=== PATIENT | male | born 1990 | race Caucasian/White ===

== ENCOUNTER 2023-02-23 18:10 | Emergency (ER) | payer OTHER, SELFPAY ==
[2023-02-23 18:31] VITALS: BP 112/69; PULSE 77; RESP 18; TEMP 36.6; O2SAT 98; BMI 26.6
--- NOTE | 2023-02-23 18:31 | ED.GENADULT ---
HPI - General Adult General Chief complaint: General Medical Stated complaint: missed dose at clinic Time Seen by Provider: 02/23/23 18:31 Source: patient Mode of arrival: ambulatory Limitations: no limitations History of Present Illness HPI narrative: 32 yo male with history of opioid use disorder on methadone at [facility] in [place] who presents to the ER for N/V and a missed methadone dose today. Patient states he woke up feeling unwell today, had several episodes of vomiting. He did not go to work. He did not get to go to the methadone clinic. He states he is on 145 mg, got last dose yesterday. He denies any illicit drug use. His stomach is starting to feel better so came to the hospital for a work note and hoping to get his methadone dose today. MD complaint: Nausea, vomiting, missed methadone Onset (ago): hour(s) Relieving factors: none Exacerbating factors: none Associated symptoms: denies other symptoms Treatments prior to arrival: none Related Data Allergies Allergy/AdvReac Type Severity Reaction Status Date / Time No Known Allergies Allergy Verified 02/23/23 18:30 Physical Exam ED Vital Signs: Vital Signs - 24 hr 02/23/23 18:31 Temperature 98 F Pulse Rate 77 Respiratory Rate 18 Blood Pressure 112/69 Pulse Oximetry 98 Oxygen Delivery Method Room Air BMI result Body Mass Index 26.6 Appearance: Alert. Oriented X3. No acute distress. HEENT: normal inspection CVS: Normal heart rate and rhythm. Pulses normal. Respiratory: No respiratory distress. Skin: Skin warm and dry. Normal skin color. Normal skin turgor. No rashes. Extremities: Normal inspection x4 Neuro: Oriented X 3. grossly normal Medications Administered Discontinued Medications Generic Name Dose Route Start Last Admin Trade Name Freq PRN Reason Stop Dose Admin Methadone HCl 40 mg 02/23/23 19:26 02/23/23 19:35 Methadone Hcl 20 Mg/2 Ml Oral.Conc PO 02/23/23 19:27 40 mg ONCE ONE Administration Medical Decision Making Medical Decision Making [facility] Narrative: 32-year-old male with history of opiate use disorder on methadone presents to the ER for evaluation after a missed methadone dose earlier today due to nausea and vomiting. He is feeling better overall but is hoping to get a methadone dose today. Unable to verify his dose to the clinic today. He has no evidence of opiate withdrawal at this time. Will give a small dose of methadone have him follow-up with his clinic in the morning. Patient agrees with plan. Differential Diagnosis Differential Diagnoses: The differential diagnosis associated with the presentation includes methadone dosing after missed dose, less likely med seeking gastroenteritis, food poisoning, viral syndrome Consult Healthcare Provider Management of the patient was discussed with: Behavioral Health Provider Pamela Jackson recommending following up with his clinic tomorrow - small dose methadone here, 40 mg given Called and left a message at [facility] in [place] to try to verify his 145 mg dose - a message is left with their after hours dose verification team however no call was returned after an hour. Patient was given 40 mg of methadone and stable for discharge home patient grateful and understanding. Chronic Conditions Patient?s care impacted by: Other (opioid use disorder) Social Determinants Patient?s care significantly limited by Social Determinants of Health including: Alcoholism and drug addiction in family Critical Care Time Critical Care Time Critical Care Time: No Discharge Plan Discharge Clinical Impression: Gastroenteritis Patient Disposition: Home, Self-Care Instructions: Gastroenteritis (DC) Additional Instructions: You were given 40 mg methadone today. Follow up with your clinic tomorrow. Stick to a bland diet while you are not feeling well. Stand Alone Forms: Work/School Release
[2023-02-23] MEDS: methADONE HCl 20 MG/2 ML ORAL.CONC 40 MG PO (19:35)
== END 2023-02-23 19:53 | disposition home or self-care (01) ==
PROVIDERS: Emergency Provider Emergency Medicine
DX: K52.9 Noninfective gastroenteritis and colitis, unspecified (principal)
CPT/HCPCS: 99282; 99283

== ENCOUNTER 2023-11-14 12:13 | Emergency (ER) | payer MEDICAID, SELFPAY ==
[2023-11-14 12:25] VITALS: BP 114/66; PULSE 44; O2SAT 98
[2023-11-14 12:27] VITALS: BP 141/74; PULSE 84; RESP 16; TEMP 36.8; O2SAT 100; BMI 23.5
[2023-11-14] MEDS: ondansetron HCL 4 MG/2 ML VIAL IVPUSH (12:43)
[2023-11-14] MEDS: 0.9 % Sodium Chloride 1,000 ML 999 ML IV (12:43)
--- NOTE | 2023-11-14 14:02 | ED.GENADULT ---
HPI - General Adult General Chief complaint: Nausea/Vomiting/Diarrhea Stated complaint: ABD PAIN,WEAK,NAUSEA,VOMITING THIS AM PER EMS Time Seen by Provider: 11/14/23 13:48 History of Present Illness HPI narrative: 33 y/o M patient; PMH opiate use disorder on methadone, daily marijuana use, active nicotine use; presents from home via triage with report of sudden onset nausea and NBNB vomiting. Denies associated: fever or chills, diarrhea, abdominal pain, difficulty breathing, or chest pain. Denies prior abdominal surgeries. Reviewed past emergency department visits - patient previously seen 02/23/2023 for nausea/vomiting, and missed methadone dose. Related Data Allergies Allergy/AdvReac Type Severity Reaction Status Date / Time No Known Allergies Allergy Verified 02/23/23 18:30 Review of Systems Review of Systems: Yes all other systems are reviewed and are negative [facility] Past Medical History Attestation statement: The following information was validated with the patient. Source: old records reviewed Social History Social History Smoked in Last 30 Days: No Use of substances other than those prescribed or required for medical reasons: No Advance Directives: No Advance Directives Information Provided: No Physical Exam ED Vital Signs: Vital Signs - 24 hr 11/14/23 12:27 11/14/23 14:29 Temperature 98.3 F 96.7 F L Pulse Rate 84 44 L Respiratory Rate 16 16 Blood Pressure 141/74 H 141/80 H Pulse Oximetry 100 100 Oxygen Delivery Method Room Air Room Air BMI result Body Mass Index 23.5 Patient is afebrile and hemodynamically stable. Const General: cooperative HENTX Head: Yes atraumatic Eyes General: appearance normal, both eyes and all related structures Neck Neck: Yes full ROM, Yes supple and No tender Chest Chest palpation & inspection: normal inspection of the chest and normal palpation of entire chest wall Resp Effort & Inspection: normal respiratory effort, able to speak in complete sentences and no cough Auscultation: clear to auscultation bilaterally Cardio Rate: regular rate Rhythm: regular rhythm Peripheral pulses: Peripheral pulses 2+ throughout GI Inspection: Yes normal to inspection and No distended Palpation (GI): Soft to palpation, not firm, nontender and no guarding General: Yes no CVA tenderness Back/Spine/Pelvis Back: no CVA tenderness Course Course Course Narrative: Patient is afebrile and hemodynamically stable. Reviewed triage orders including Zofran 4mg IV and 1L IVF. Added Haldol 5mg IM for continued nausea/vomiting not improved by Zofran. Requested EKG to confirm appropriate QTc as patient is on chronic methadone. Reevaluation(s) Reevaluation #1: EKG: SB 48BPM without ischemic changes, QTc 432. Laboratory studies reviewed. Mild leukocytosis 13.1. Mild thrombocytopenia 155. COVID/Flu/RSV negative. Time: 15:47 Reevaluation #2: No further nausea/vomiting following Haldol administration. Now reporting restless legs. Unable to confirm patient's methadone dose, will provide 40mg Methadone until he can follow up with the clinic. Patient is agreeable with plan. Discharge to home with out-patient follow up Return precautions given Time: 16:51 Medications Administered Discontinued Medications Generic Name Dose Route Start Last Admin Trade Name Freq PRN Reason Stop Dose Admin Haloperidol Lactate 5 mg 11/14/23 14:06 11/14/23 16:08 Haloperidol Lactate 5 Mg/Ml Vial IM 11/14/23 14:07 5 mg ONCE ONE Administration Sodium Chloride 1,000 mls @ 999 mls/hr 11/14/23 12:45 11/14/23 12:43 Ns IV 11/14/23 13:45 999 mls/hr .Q1H1M ADAM Administration Ondansetron HCl 4 mg 11/14/23 12:39 11/14/23 12:43 Ondansetron Hcl 4 Mg/2 Ml Vial IVPUSH 11/14/23 12:40 4 mg ONCE ONE Administration Medical Decision Making Lab Data 11/14/23 14:13 11/14/23 14:13 Labs: Lab Results 11/14/23 11/14/23 Range/Units 13:29 14:13 WBC 13.1 H (4.8-10.8) X10*3/uL RBC 4.50 L (4.60-5.80) X10*6/uL Hgb 14.1 (14.0-18.0) g/dl Hct 41.1 L (42.0-52.0) % MCV 91.3 (80.0-98.0) fL MCH 31.3 (27.0-33.0) pg MCHC 34.3 (31.0-36.0) g/dl RDW 11.9 (11.0-16.0) % Plt Count 155 L (160-400) X10*3/uL MPV 11.0 (9.4-12.4) fL Immature Gran % (Auto) 0.5 H (0.0-0.4) % Neut % (Auto) 86.8 H (45-73) % Lymph % (Auto) 6.8 L (20-40) % [place] % (Auto) 5.7 (2-11) % Eos % (Auto) 0.0 (0-4) % Baso % (Auto) 0.2 (0-2) % Lymph # (Auto) 0.9 L (1.2-4.9) X10*3/uL [place] # (Auto) 0.8 (0.1-1.2) X10*3/uL Eos # (Auto) 0.0 (0.0-0.4) X10*3/uL Baso # (Auto) 0.0 (0.0-0.2) X10*3/uL Abs Immat Gran (auto) 0.06 H (0.00-0.03) X10*3/uL Absolute Neuts (auto) 11.4 H (2.0-8.3) x10*3/uL Absolute Nucleated RBC 0.000 (0.0-0.012) X10*3/uL Nucleated RBC % (auto) 0.0 (0.0-0.2) /100WBC Sodium 140 (135-145) mmol/L Potassium 4.3 (3.3-5.1) mmol/L Chloride 105 (96-108) mmol/L Carbon Dioxide 24 (22-29) mmol/L Anion Gap 15 (12-20) BUN 11 (9-16) mg/dL Creatinine 0.89 (0.5-1.4) mg/dL Estim Creat Clear Calc 112.4 Estimated GFR > 60 Random Glucose 140 H (60-115) mg/dL Calcium 10.0 (8.4-10.2) mg/dL Total Bilirubin 0.4 (0.0-1.0) mg/dL Direct Bilirubin 0.2 (0.0-0.5) mg/dL AST 28 (5-37) U/L ALT 43 H (0-40) U/L Alkaline Phosphatase 57 (39-117) U/L Total Protein 7.8 (6.5-8.0) g/dL Albumin 4.6 (3.5-5.0) g/dL Lipase 12 (8-78) U/L Influenza Type A (PCR) NEGATIVE (Negative) Influenza Type B (PCR) NEGATIVE (Negative) RSV RNA Qual (PCR) NEGATIVE (Negative) SARS-CoV-2 RNA (RT-PCR) NEGATIVE (Negative) Discharge Plan Discharge Clinical Impression: Nausea & vomiting Patient Disposition: Home, Self-Care Instructions: Acute Nausea and Vomiting (ED) Additional Instructions: As we discussed, you were seen today for nausea and vomiting. Your lab work was reassuring with negative COVID/Flu/RSV. You received Zofran and Haldol for nausea, IV fluid for hydration, and a 40mg dose of Methadone until you can follow up in the clinic tomorrow (11/15/2023). Return to the emergency department for abdominal pain, fever or chills, continued vomiting.
--- NOTE | 2023-11-14 14:07 | ECG_ITS ---
Test Reason : NAUSEA/VOMITING Blood Pressure : / mmHG Vent. Rate : 048 BPM Atrial Rate : 048 BPM P-R Int : 106 ms QRS Dur : 100 ms QT Int : 484 ms P-R-T Axes : 042 -26 031 degrees QTc Int : 432 ms Sinus bradycardia with short PA with Sinus Arrhythmia Incomplete right bundle branch block Borderline ECG No previous ECGs available Referred By: Debby Mack Electronically Signed By:MESSI DORAN MD
[2023-11-14 14:16] LABS: MANUAL DIFF FLAG NO
[2023-11-14 14:17] LABS: Influenza A PCR NEGATIVE (Negative); Influenza B PCR NEGATIVE (Negative); Resp Syncy Virus RNA Qual PCR NEGATIVE (Negative); SARS COV2 PCR INHOUSE NEGATIVE (Negative)
[2023-11-14 14:25] LABS: Basophils Percent Auto 0.2 % (0-2); Hematocrit 41.1 % (42.0-52.0); Hemoglobin 14.1 g/dl (14.0-18.0); Imm Gran Abs Auto 0.06 X10*3/uL (0.00-0.03); Imm Gran Pct Auto 0.5 % (0.0-0.4); Lymphocytes Absolute Auto 0.9 X10*3/uL (1.2-4.9); Lymphocytes Percent Auto 6.8 % (20-40); Mean Corpuscular HGB Conc 34.3 g/dl (31.0-36.0); Mean Corpuscular Hemoglobin 31.3 pg (27.0-33.0); Mean Corpuscular Volume 91.3 fL (80.0-98.0); Monocytes Absolute Auto 0.8 X10*3/uL (0.1-1.2); Monocytes Percent Auto 5.7 % (2-11); Neutrophils Absolute Auto 11.4 x10*3/uL (2.0-8.3); Neutrophils Percent Auto 86.8 % (45-73); Platelet Count 155 X10*3/uL (160-400); Red Cell Distribution Width 11.9 % (11.0-16.0); White Blood Count 13.1 X10*3/uL (4.8-10.8)
[2023-11-14 14:29] VITALS: BP 141/80; PULSE 44; RESP 16; TEMP 35.9; O2SAT 100
[2023-11-14 14:36] LABS: Alanine Aminotransferase 43 U/L (0-40); Albumin Level 4.6 g/dL (3.5-5.0); Alkaline Phosphatase 57 U/L (39-117); Anion Gap 15 (12-20); Aspartate Amino Transferase 28 U/L (5-37); Bilirubin Direct 0.2 mg/dL (0.0-0.5); Bilirubin Total 0.4 mg/dL (0.0-1.0); Blood Urea Nitrogen 11 mg/dL (9-16); Carbon Dioxide 24 mmol/L (22-29); Chloride 105 mmol/L (96-108); Creatinine Clr Calc Pharmacy 112.4; Estimated Glomerular Filt Rate > 60; Glucose Random 140 mg/dL (60-115); Lipase 12 U/L (8-78); Potassium 4.3 mmol/L (3.3-5.1); Sodium 140 mmol/L (135-145); Total Protein 7.8 g/dL (6.5-8.0)
[2023-11-14] MEDS: Haloperidol Lactate 5 MG/ML VIAL IM (16:08)
[2023-11-14] MEDS: methADONE HCl 20 MG/2 ML ORAL.CONC 40 MG PO (17:17)
--- NOTE | 2023-11-14 17:44 | PC.NURSE ---
Assumed care of pt at 1515. PT alert and oriented. endorsing n/v. PT medicated as per JAN. discharged and IV line removed.
== END 2023-11-14 19:29 | disposition home or self-care (01) ==
PROVIDERS: Emergency Provider Emergency Medicine
DX: R11.2 Nausea with vomiting, unspecified (principal); R00.1 Bradycardia, unspecified; F12.10 Cannabis abuse, uncomplicated; Z20.822 Contact with and (suspected) exposure to COVID-19; Z20.828 Contact with and (suspected) exposure to other viral communicable diseases; Z79.899 Other long term (current) drug therapy
CPT/HCPCS: 0241U; 36415; 80053; 82248; 83690; 85025; 93005; 96372; 96374; 99284; 99285; J1630; J2405

== ENCOUNTER → 2023-11-14 14:07 | Outpatient (BNV) | payer MEDICAID, SELFPAY | PROVIDERS: Emergency Provider Emergency Medicine; Visit Provider Internal Medicine Cardiovascular Disease | DX: R00.1 Bradycardia, unspecified (principal) | CPT/HCPCS: 93010 ==